=== PATIENT | male | born 1970 | race Caucasian/White ===

== ENCOUNTER 2019-05-19 13:37 | Emergency (ER) | payer OTHER ==
[~2019-05-19] VITALS: Ht 165.1 cm; Wt 56.7 kg
[2019-05-19] MEDS ORDERED: ABILIFY2 MG ORAL (13:46)
[2019-05-19] MEDS ORDERED: DEPAKOTE125 MG PO (13:46)
--- NOTE | 2019-05-19 13:53 | Emergency Room Report ---
History of Present Illness General Chief Complaint: Allergies Source: Patient Present Illness HPI 48-year-old male history of schizoaffective disorder presents with intermittent lip swelling, tongue swelling per patient he states that he thinks he is allergic to something where he is staying he thinks it might be bedbugs, he denies any chest pain, abdominal pain he states he feels with the swelling comes and goes at well, aggravated by allergies alleviated by nothing, he endorses the symptoms have been going for 1 month, he denies taking lisinopril, no nausea no vomiting, no abdominal pain, no diarrhea. Allergies: Coded Allergies: No Known Allergies (Unverified , 05/19/19) Patient History Past Medical History: see triage record Reviewed Nursing Documentation: PMH: Agreed; PSxH: Agreed Nursing Documentation-PMH History Of Psychiatric Problem: Yes Hx Seizures: Yes Review of Systems All Other Systems: negative except mentioned in HPI Physical Exam Vital Signs Date Time Temp Pulse Resp B/P (MAP) Pulse Ox O2 Delivery O2 Flow Rate FiO2 05/19/19 13:42 97.9 87 19 121/83 (96) 97 Room Air Sp02 EP Interpretation: reviewed, normal General Appearance: well appearing, no apparent distress, alert Head: normocephalic, atraumatic Eyes: bilateral eye PERRL, bilateral eye EOMI ENT: uvula midline, moist mucus membranes, other - Oropharynx completely unremarkable, no posterior swelling, no tongue swelling, lips unremarkable, no swelling no stridor Neck: supple, thyroid normal, supple/symm/no masses Respiratory: lungs clear, no respiratory distress, no retraction, no accessory muscle use Cardiovascular #1: normal peripheral pulses, regular rate, rhythm, no edema, no gallop, no murmur Gastrointestinal: non tender, soft, no guarding, no rebound Musculoskeletal: normal inspection Neurologic: alert, oriented x3 Psychiatric: mood/affect normal Skin: no rash, warm/dry Medical Decision Making Diagnostic Impression: Primary Impression: Environmental allergies ER Course Patient with possible environmental allergies, strict return precautions were given. No evidence of airway involvement. Differential includes angioedema, allergies. Disposition home with return precautions Last Vital Signs Date Time Temp Pulse Resp B/P (MAP) Pulse Ox O2 Delivery O2 Flow Rate FiO2 05/19/19 13:42 97.9 87 19 121/83 (96) 97 Room Air Disposition: HOME, SELF-CARE Condition: Stable Scripts Epinephrine (Epipen 2-Owen) 0.3 Mg/0.3 Ml Auto.injct 0.3 MG IM ONCE PRN for anaphylaxis , #1 EA Prov: Chente Roca MD 05/19/19 Patient Instructions: Allergies Additional Instructions: The patient was provided with discharge instructions, notified to follow-up with a primary care doctor and or specialist in the next 24-48 hours, and to return to the ED if they have worsening of their symptoms. Please note that this report is being documented using [employer] technology. This can lead to erroneous entry secondary to incorrect interpretation by the dictating instrument. Chente Roca MD May 19, 2019 13:53
[2019-05-19] MEDS ORDERED: EPIPEN 2-P0.3 MG/0.3 IM (13:55)
--- NOTE | 2019-05-19 14:15 | NUR ---
ED Nurse Note:pt states his mouth/lip feel swollen. pt denies injury no dyspnea. no n/v no other c/o
[2019-05-19 14:17] VITALS: BP 121/83
--- NOTE | 2019-05-19 15:35 | NUR ---
ER DISCHARGE NOTE: Patient is cleared to be discharged per ERMD, pt is aox4, on room air, with stable vital signs. pt was given dc and prescription instructions, pt was able to verbalize understanding, pt id band removed without complications. pt is able to ambulate with steady gait. pt took all belongings. ride from [address] here to take pt home. pt denies c/o upon dc/
[2019-05-19 15:37] VITALS: BP 121/83
== END 2019-05-19 15:38 | disposition home or self-care (01) ==
LOC: EMR 14:11
DX: T78.40XA Allergy, unspecified, initial encounter (principal); X58.XXXA Exposure to other specified factors, initial encounter; G40.909 Epilepsy, unspecified, not intractable, without status epilepticus; F25.9 Schizoaffective disorder, unspecified
CPT/HCPCS: 99282